=== PATIENT | male | born 1960 | race Hispanic/Latino ===

== ENCOUNTER 2016-07-12 13:03 | Emergency (ER) | payer OTHER ==
--- NOTE | 2016-07-12 13:34 | ED.PDOC ---
History of Present Illness - General Chief Complaint: Neuro Symptoms/Deficits Stated Complaint: R facial weakness Time Seen by Provider: 07/12/16 13:29 Source: patient, RN notes reviewed, Vital Signs reviewed, interpreter and translator, other - Nurse Practitioner at Urgent Care clinic Exam Limitations: language barrier - History of Present Illness Initial Comments: Patient sent over from Urgent Care clinic for R facial paralysis and L thumb and index finger weakness. Patient has a history of a benign brain tumor removed in 2006. 2 years ago he started noticing changes on the R side of his face. It started to look different and he could no longer whistle. About the same time he noticed difficulty moving his thumb and index finger on his L hand. About 2 months ago his voice started to get hoarse. Timing/Duration: constant Severity: moderate Improving Factors: nothing Worsening Factors: nothing Associated Symptoms: trouble walking - Unchanged since surgery in 2006 per patient. Allergies/Adverse Reactions: Allergies Fexofenadine [From [facility]] Adverse Reaction (Verified 07/12/16 14:14) Review of Systems - Review of Systems Constitutional: States: no symptoms reported EENTM: States: other - Hoarse voicee Respiratory: States: no symptoms reported Cardiology: States: no symptoms reported Gastrointestinal/Abdominal: States: no symptoms reported Genitourinary: States: no symptoms reported Musculoskeletal: States: no symptoms reported Skin: States: no symptoms reported Neurological: States: see HPI, pre-existing deficit, weakness Endocrine: States: no symptoms reported Family Medical History - Family History Mother Family History: No Known Physical Exam - Physical Exam General Appearance: Alert, Comfortable, No apparent distress, Well Developed, Well Groomed, Well Hydrated, Well Nourished Eye Exam: bilateral normal ENT Exam: normal ENT inspection, hearing grossly normal, pharynx normal, muffled /hoarse voice Neck: non-tender, full range of motion, supple, normal inspection Respiratory: lungs clear, normal breath sounds, no respiratory distress, no accessory muscle use Cardiovascular/Chest: regular rate, rhythm, no edema, no gallop, no JVD, no murmur Extremities Exam: non-tender, normal range of motion, no evidence of injury Mental Status: alert, oriented x 3 supervisor bonding Exam: facial droop - on Right, facial weakness - On right Coordination/Gait: normal gait Motor/Sensory: no sensory deficit, no pronator drift, weak motor strength LUE - extension of L thumb and index finger. Skin Exam: normal color, warm/dry Comments: Vital Signs - 24 hr 07/12/16 07/12/16 13:35 14:36 Temperature 97.9 F Pulse Rate [ 63 right brachial] Respiratory 16 16 Rate Blood Pressure 142/80 141/81 [RAC] O2 Sat by Pulse 99 97 Oximetry Progress - Results/Orders Results/Orders: Laboratory Tests 07/12/16 13:51 Sodium 138 Potassium 4.5 Chloride 104 Carbon Dioxide 28 Anion Gap 10.5 L BUN 18 Creatinine 0.82 BUN/Creatinine Ratio 22.0 H Random Glucose 110 H Serum Osmolality 278.2 Calcium 9.2 Total Bilirubin 0.7 AST 30 ALT 44 Alkaline Phosphatase 76 Serum Total Protein 7.7 Albumin 4.6 Globulin 3.1 Albumin/Globulin Ratio 1.5 - EKG/XRAY/CT CT Ordered: Yes - Head: no acute changes from prior MRI Departure - Departure Clinical Impression: Facial paralysis on right side, Hoarseness of voice, Weakness of left hand Time of Disposition: 14:50 Disposition: Discharge to Home or Self Care Condition: Good Departure Forms: ED Discharge - Pt. Copy, Patient Portal Self Enrollment Instructions: DI for Kirby's Palsy Diet: resume usual diet Activity: increase activity as tolerated Referrals: Jalen Xiao MD [Primary Care Provider] - 1-5 Days (Needs MRI and Neurology Referal)
[2016-07-12 13:50] VITALS: TEMP 97.9
[2016-07-12 14:42] VITALS: BP 141/81; O2SAT 97
--- NOTE | 2016-07-12 14:44 | CT ---
EXAM DESCRIPTION: Head w/Contrast CLINICAL HISTORY: R facial weakness, hoarse voice, hx of brain tumor COMPARISON: MRI brain September 15, 2012 TECHNIQUE: Contiguous axial images of the brain were obtained after the administration of intravenous contrast. FINDINGS: Precontrast images are not available. This limits evaluation for the brain. Focal extra-axial area of enhancement adjacent to the interhemispheric fissure at the level of the convexity, image 24 measuring approximately 1.7 x 0.9 cm noted. When compared with the prior MRI, this is not significantly changed. Adjacent area of encephalomalacia visualized. Patient is status post frontal craniotomy. There is no midline shift. Ventricular system is nondilated. IMPRESSION: Stable examination. Extra axial area of enhancement adjacent to the interhemispheric fissure is not significant change compared with the prior exam. Follow-up MRI could be helpful for further evaluation. Electronically signed by: Reji Castro MD 07/12/2016 2:43 PM CDT
== END 2016-07-12 14:55 | disposition home or self-care (01) ==
LOC: ER 13:03
DX: G51.0 Bell's palsy (principal); R49.0 Dysphonia; M62.81 Muscle weakness (generalized); Z88.8 Allergy status to other drugs, medicaments and biological substances